=== PATIENT | female | born 1960 | race Caucasian/White ===

== ENCOUNTER 2016-09-28 12:31 | Day surgery (SDC) | payer MEDICARE ==
[~2016-09-28] VITALS: Ht 154.9 cm; Wt 67.3 kg
[2016-09-28] MEDS ORDERED: SUSTIVA (13:32)
[2016-09-28] MEDS ORDERED: COMBIVIR (13:32)
[2016-09-28] MEDS ORDERED: NORVASC (13:32)
[2016-09-28] MEDS ORDERED: PRILOSEC (13:32)
[2016-09-28 13:33] VITALS: Ht 154.9 cm; Wt 67.3 kg
[2016-09-28 13:45] VITALS: BP 129/59; PULSE 73; RESP 12
[2016-09-28] MEDS ORDERED: LIDOCAINE 2% (SDV) 5 ML INJ ONE (13:48)
[2016-09-28] MEDS ORDERED: PROPOFOL 20 ML ONE ×2 (13:48→14:28)
[2016-09-28] MEDS ORDERED: MIDAZOLAM 1 MG/ML 2 ML INJ ONE (13:48)
[2016-09-28 14:55] VITALS: BP 123/72; PULSE 77; RESP 18
--- NOTE | 2016-09-29 04:50 | GILP ---
DATE OF PROCEDURE: 09/28/2016 PREOPERATIVE DIAGNOSIS: Screening colonoscopy. POSTOPERATIVE DIAGNOSES: 1. Two flat polyps from the right colon were removed using the snare and electrocautery. 2. Clipping of one of the polypectomy sites was done because of bleeding. PROCEDURE PERFORMED: 1. Colonoscopy and polypectomy. 2. Clipping of one of the polypectomy sites to stop bleeding. ENDOSCOPIST: Maria Eugenia Baltazar MD INDICATION: Ms. Tabatha Solorzano is a 56-year-old female patient who was scheduled for screening colonoscopy. The procedure and possible complications were well explained to the patient. She understood and consented to the procedure. DESCRIPTION OF PROCEDURE: Under influence of anesthesia, the colonoscope was carefully introduced in the rectum. Under direct vision, it was advanced all the way to the cecum. Findings: The patient had 2 flat polyps in the right colon and they were removed using the snare and electrocautery. There was some bleeding from one of the polypectomy sites and clipping of the polypectomy site was done and the bleeding stopped. The patient was noted to have internal hemorrhoids. She tolerated the procedure very well. There was no complications from the procedure. At the end of procedure, she was awake with stable vital signs and she was discharged home in care of her family. IMPRESSION: 1. Colonoscopy all the way to the cecum. 2. Two flat polyps from the right colon were removed using the snare and electrocautery. 3. Clipping of one of the polypectomy sites was done to stop bleeding. 4. Internal hemorrhoids. PLAN: Await histopathology report. Because of the flat nature of the polyp, the patient made will need next colonoscopy in 2 years. Dictated By: MD APOORVA Hamm/maicol/cleo /Document#: [id number]
== END 2016-09-28 16:27 | disposition home or self-care (01) ==
LOC: GIL 12:31
PROVIDERS: ATTEND Internal Medicine Gastroenterology
DX: Z12.11 Encounter for screening for malignant neoplasm of colon (principal); K63.5 Polyp of colon; I10 Essential (primary) hypertension; M06.9 Rheumatoid arthritis, unspecified
CPT/HCPCS: 45380; 45385; 88305; J2250